=== PATIENT | female | born 1965 | race Caucasian/White ===

== ENCOUNTER 2021-08-13 01:32 | Emergency (ER) | payer BC, OTHER | END 2021-08-13 02:55 | disposition home or self-care (01) | LOC: ERS 01:32 | DX: B02.9 Zoster without complications (principal); I10 Essential (primary) hypertension; F17.210 Nicotine dependence, cigarettes, uncomplicated; Z79.899 Other long term (current) drug therapy | CPT/HCPCS: 99283 ==

== ENCOUNTER 2025-06-01 08:48 | Inpatient (IN) | payer BC, OTHER, SELFPAY ==
[2025-06-01] MEDS ORDERED: Ondansetron PF 4 MG/2 ML Vial ONE (09:14)
[2025-06-01] MEDS ORDERED: Ketamine In 0.9 % NaCl 50 MG/5 ML SYRINGE ONE (09:14)
[2025-06-01] MEDS ORDERED: Ketorolac Tromethamine 30 MG (1 mL) VIAL ONE (09:14)
[2025-06-01 09:24] LABS: #Basophils 0.04 10x3/uL (0.0-0.2); #Eosinophils 0.20 10x3/uL (0.0-0.7); #Monocytes 0.59 10x3/uL (0.11-0.59); #Neutrophils 4.54 10x3/uL (1.40-6.50); %Basophils 0.5 % (0.0-1.0); %Eosinophils 2.7 % (0.0-10.0); %Lymphocytes 27.5 % (21.0-51.0); %Monocytes 7.9 % (0.0-10.0); %Neutrophils 61.1 % (42.0-75.0); Hematocrit 30.9 % (36.0-47.0); Hemoglobin 10.7 g/dL (12.0-16.0); Mean Corpuscular Hemoglobin 33.3 pg (27.0-31.0); Mean Corpuscular Volume 96.3 fL (78.0-98.0); Platelet Count 300 10x3/uL (130-400); Red Blood Cell (RBC) Count 3.21 mill/uL (4.20-5.40); White Blood Cell (WBC) Count 7.43 10x3/uL (4.8-10.8)
[2025-06-01 09:36] LABS: ALT (SGPT) 13 U/L (Less than 34); AST (SGOT) 24 U/L (11-34); Albumin 4.0 g/dL (3.1-4.5); Alkaline Phosphatase 51 U/L (40-110); Anion Gap 18 mmol/L (10-20); BUN (Urea Nitrogen) 32 mg/dL (9.8-20.1); Bilirubin, Total 0.3 mg/dL (0.3-1.2); Calc. Creatinine Clearance 0 mL/min (70-130); Calcium 8.9 mg/dL (7.8-10.44); Carbon Dioxide 17 mmol/L (22-29); Chloride 101 mmol/L (98-107); Globulin 3.3 g/dL (2.4-3.5); Glucose 94 mg/dL (70-105); Potassium 5.0 mmol/L (3.5-5.1); Sodium 131 mmol/L (136-145)
[2025-06-01 09:39] LABS: INR-International Normal Ratio 1.1; PTT 29.8 sec (22.9-36.1); Prothrombin Time 14.0 sec (12.0-14.7)
[2025-06-01] MEDS ORDERED: TETANUS, DIPHTHERIA TOX,ADULT (TDVAX) 0.5 ML VIAL IM ONE (10:47)
[2025-06-01] MEDS ORDERED: Glucagon 1 MG/ML KIT IM PRN (10:47)
[2025-06-01] MEDS ORDERED: Ondansetron PF 4 MG/2 ML Vial IVP PRN (10:47)
[2025-06-01] MEDS ORDERED: hydrALAZINE 20 MG/ML VIAL SLOW IVP PRN (10:47)
[2025-06-01] MEDS ORDERED: Acetaminophen 325 MG TAB PO PRN (10:47)
[2025-06-01] MEDS ORDERED: Dextrose 50% Abboject 50 ML SYRINGE SLOW IVP PRN (10:47)
[2025-06-01 11:29] LABS: Bacteria/HPF None Seen HPF (None Seen); CAUTI Indications for Culture Pelvic or flank pain; Glucose, Urine (Dipstick) Normal (Negative); Leukocyte Negative Leu/uL (Negative); Protein, Urine (Dipstick) Negative (Neg-Trace); RBC/HPF 0-3 HPF (0-3); Specific Gravity, Urine 1.006 (1.002-1.036); WBC/HPF 0-3 HPF (0-3)
[2025-06-01 11:32] LABS: Urine Culture Reflex No No
[2025-06-01 12:49] VITALS: BMI 17.8
[2025-06-01] MEDS: HYDROcodone/Acetaminophen 5/325 mg Tablet PO PRN (13:38)
[2025-06-01] MEDS ORDERED: TETANUS AND DIPHTHERIA TOX/PF 0.5 ML DISP.SYRIN IM SCH (22:00)
[2025-06-01] MEDS: Methocarbamol 500 MG TAB PO PRN (23:53)
[2025-06-02 04:55] LABS: #Basophils Less than 0.03 10x3/uL (0.0-0.2); #Eosinophils 0.23 10x3/uL (0.0-0.7); #Monocytes 0.89 10x3/uL (0.11-0.59); #Neutrophils 3.61 10x3/uL (1.40-6.50); %Basophils 0.3 % (0.0-1.0); %Eosinophils 3.7 % (0.0-10.0); %Lymphocytes 23.7 % (21.0-51.0); %Monocytes 14.2 % (0.0-10.0); %Neutrophils 57.8 % (42.0-75.0); Hematocrit 29.9 % (36.0-47.0); Hemoglobin 10.3 g/dL (12.0-16.0); Mean Corpuscular Hemoglobin 33.4 pg (27.0-31.0); Mean Corpuscular Volume 97.1 fL (78.0-98.0); Platelet Count 245 10x3/uL (130-400); Red Blood Cell (RBC) Count 3.08 mill/uL (4.20-5.40); White Blood Cell (WBC) Count 6.25 10x3/uL (4.8-10.8)
[2025-06-02 05:30] LABS: Anion Gap 12 mmol/L (10-20); BUN (Urea Nitrogen) 34 mg/dL (9.8-20.1); Calc. Creatinine Clearance 33 mL/min (70-130); Calcium 8.4 mg/dL (7.8-10.44); Carbon Dioxide 22 mmol/L (22-29); Chloride 106 mmol/L (98-107); Glucose 85 mg/dL (70-105); Potassium 4.7 mmol/L (3.5-5.1); Sodium 135 mmol/L (136-145)
[2025-06-02] MEDS ORDERED: Lidocaine 1% PF 5 ML VIAL ONE (08:00)
[2025-06-02] MEDS ORDERED: Rocuronium Bromide 10 MG/ML (10ML VIAL) ONE (08:00)
[2025-06-02] MEDS ORDERED: PROPOFOL 20 ML ONE (08:00)
[2025-06-02] MEDS ORDERED: CEFAZOLIN 1 GM VIAL ONE (08:22)
[2025-06-02] MEDS ORDERED: Ondansetron PF 4 MG/2 ML Vial ONE (08:24)
[2025-06-02] MEDS ORDERED: Tranexamic Acid 1,000 MG/10 ML VIAL ONE (08:32)
[2025-06-02] MEDS ORDERED: fentaNYL PF 100 MCG/2 ML SYRINGE ONE (08:33)
[2025-06-02] MEDS ORDERED: Glycopyrrolate 0.2 MG/ML 5 ML SYRINGE ONE (08:41)
[2025-06-02] MEDS ORDERED: PHENYLEPHRINE-NS 100 MCG/ML 10 ML SYRINGE ONE (08:41)
[2025-06-02] MEDS ORDERED: SUGAMMADEX SODIUM 200 MG/2 ML VIAL ONE (09:40)
[2025-06-02] MEDS ORDERED: Ketorolac Tromethamine 30 MG (1 mL) VIAL ONE (09:41)
[2025-06-03 07:40] VITALS: TEMP 98
[2025-06-03] MEDS: Losartan 25 MG TAB PO SCH (07:44)
[2025-06-03] MEDS: Metoprolol Succinate XL 50 MG ER.TAB PO SCH (07:45)
[2025-06-03] MEDS: Aspirin 81 mg Enteric Coated Tablet PO SCH (09:34)
[2025-06-03 11:18] VITALS: BP 169/79
[2025-06-03] MEDS ORDERED: Senokot S 8.6-50 MG TAB PO SCH (21:00)
[2025-06-03] MEDS ORDERED: Aspirin 81 mg Enteric Coated Tablet PO SCH (21:00)
== END 2025-06-03 13:45 | disposition home or self-care (01) | DRG 494 ==
LOC: ERS 08:48 → SURG A 10:47
PROVIDERS: ADMIT Surgery; ATTEND Surgery
PROC: 0QSH04Z Reposition Left Tibia with Internal Fixation Device, Open Approach (ICD-10-PCS; principal; 2025-06-02)
PROC: 0QUH0KZ Supplement Left Tibia with Nonautologous Tissue Substitute, Open Approach (ICD-10-PCS; 2025-06-02)
PROC: 3E033XZ Introduction of Vasopressor into Peripheral Vein, Percutaneous Approach (ICD-10-PCS; 2025-06-02)
PROC: 2W3RX3Z Immobilization of Left Lower Leg using Brace (ICD-10-PCS; 2025-06-03)
DX: S82.142A Displaced bicondylar fracture of left tibia, initial encounter for closed fracture (principal); W18.30XA Fall on same level, unspecified, initial encounter; I10 Essential (primary) hypertension; F17.210 Nicotine dependence, cigarettes, uncomplicated; Z98.891 History of uterine scar from previous surgery; Z79.899 Other long term (current) drug therapy; Z79.82 Long term (current) use of aspirin
CPT/HCPCS: 27532; 36415; 71045; 80048; 80053; 81001; 85025; 85610; 85730; 86850; 86900; 86901; 93005; 96374; 96375; 99152; 99153; C1713; C1889; G0390; J0665; J0690; J1100; J1885; J2405; J2704; J3010; J3490; J7120